=== PATIENT | male | born 1960 | race Caucasian/White ===

== ENCOUNTER 2022-07-03 07:26 | Outpatient (CLI) | payer BC, SELFPAY | END 2022-07-03 07:27 | disposition home or self-care (01) | LOC: INJ CL 07:28 | PROVIDERS: Visit Provider Family Medicine | DX: M54.16 Radiculopathy, lumbar region (principal); M51.26 Other intervertebral disc displacement, lumbar region | CPT/HCPCS: 62323; Q9966 ==